=== PATIENT | female | born 1955 | race Caucasian/White ===

== ENCOUNTER 2024-03-22 03:04 | Inpatient (IN) | payer OTHER, SELFPAY ==
[2024-03-22] VITALS (20 sets, daily range): BP systolic 90–164; BP diastolic 44–92; PULSE 2–83; BMI 33.0
[2024-03-22 01:19] LABS: Glucose - Point of Care 257 mg/dl (70-99)
[2024-03-22] MEDS: SOLU-MEDROL PF 125 MG IV (01:22)
[2024-03-22] MEDS: LASIX 40 MG IV (01:28)
[2024-03-22] MEDS: DUONEB 3 ML INH (01:30)
[2024-03-22 01:32] LABS: % Basophils 0.8 % (0-2); % Immature Granulocytes 0.3 % (0-0.5); % Lymphocytes 44.7 % (20.5-51.1); % Monocytes 9.2 % (1.7-9.3); Absolute Basophils 0.1 10^3/uL (0-0.2); Absolute Eosinophils 0.5 10^3/uL (0-0.7); Absolute Lymphocytes 4.4 10^3/uL (1.2-3.4); Absolute Monocytes 0.9 10^3/uL (0.1-0.6); Hematocrit 39.2 % (37.0-47.0); Hemoglobin 13.1 g/dL (12.0-16.0); Mean Corp Hgb Conc. 33.4 g/dL (33.0-37.0); Mean Corpuscular Hgb 30.2 pg (27.0-31.0); Mean Corpuscular Volume 90.3 fL (81.0-99.0); Mean Platelet Volume 11.1 fL (7.4-10.4); Nucleated Red Blood Cells % 0 %; Platelet Count 274 10^3/uL (130-400); Red Blood Cell Count 4.34 10^6/uL (4.20-5.40); Red Cell Dist. Width 14.9 % (11.5-14.5); White Blood Cell Count 9.9 10^3/uL (4.8-10.8)
[2024-03-22 01:51] LABS: ALT (SGPT) 16 U/L (0-35); AST (SGOT) 30 U/L (14-36); Albumin 4.8 g/dl (3.5-5.0); Alkaline Phosphatase 134 U/L (38-126); Blood Urea Nitrogen 25 mg/dl (7-17); Calcium 10.2 mg/dl (8.4-10.2); Carbon Dioxide 22 mmol/L (22-30); Chloride 106 mmol/L (98-107); Glucose 290 mg/dl (70-99); Potassium 4.4 mmol/L (3.5-5.1); Sodium 141 mmol/L (135-145); Total Bilirubin 0.8 mg/dl (0.2-1.3); Total Protein 8.4 g/dl (6.3-8.2); eGFR 54.06
--- NOTE | 2024-03-22 01:53 | ED.GENMED ---
History of Present Illness
General
Chief Complaint: Breathing Problem
Source: patient, records, family and ambulance crew
Exam Limitations: none
Time Seen by Provider: 03/22/24 01:35
Nursing documentation reviewed up to this point in time: agreed with
Travel History
Have you had any contact with someone who has COVID-19?: Unable to Answer
Do you have any symptoms of coronavirus? Fever > 100 degrees, chills, cough, shortness of breath, sore throat, loss of taste or smell, muscle aches, or headache?: Unable to Answer
History of Present Illness
History of Present Illness:
69-year-old female with a past medical history of CHF, CAD, pacemaker/AICD, diabetes, hypertension, hyperlipidemia who presents to the emergency department via EMS in respiratory distress. Patient reports that she had onset of symptoms this
evening�she says that she was generally well throughout the day and then woke up tonight with severe dyspnea. She told her family that she could not breathe and they called EMS to bring her to the hospital. Per EMS on arrival patient was
tachypneic with wheezing and basilar rales, saturation was 62% on room air. She was placed on nonrebreather mask with improvement to 88%; she was given DuoNeb on the way to the hospital. On arrival here she continues to complain of severe dyspnea.
She denies any chest pain. She says she has been coughing since onset of symptoms. She has not noticed any edema in her legs. She says has been compliant with all her medications�family brought medications to the bedside she is on Lasix 80 mg
twice daily.
Past History
Past History
ED Past Medical History: NIDDM
ED Past Surgical History: Orthopedic
Social History
Tobacco: Smoker
Alcohol: None
Review of Systems
Review of Systems
Unable to obtain full review of systems at this time due to: due to acuity
All Other Systems: Not applicable
Phy Exam
Physical Exam
Physical Exam:
General: Awake, alert; in moderate to severe respiratory distress
Head: Normocephalic, atraumatic
Eyes: Conjunctiva normal, sclera anicteric
Throat: Airway intact
Neck: Trachea midline, slight JVD
Lungs: Patient has scattered wheezing and diminished air movement; she does have rales in the lung bases; she has severe tachypnea with respiratory rate in the 30s to 40s and hypoxia to 88% on a nonrebreather mask
Heart: Tachycardia with ostensibly regular rhythm, no murmurs, gallops, or rubs
Abd: Soft, non distended, nontender
Neuro: No gross deficits
Extremities: Trace edema in the lower extremities bilaterally, equal pulses in all extremities
Scores
Heart Failure Risk
Heart Failure Risk Score: Yes
History of Stroke or TIA: No
History of intubation for respiratory distress: No
Heart rate on ED arrival >/= 110: Yes
SaO2 <90% on arrival on room air: Yes
HR >/=110 during 3min walk test (or too ill to perform test): Yes
ECG has acute ischemic changes: No
Urea >/=12mmol/L (BUN 33.6mg/dL): No
Serum CO2>/=35mmol/L: No
Troponin I or T elevated to [place] Level (0.4mg/dL): No
NT-proBNP >/=5,000ng/L (5,000pg/ml): No
HF Risk Score: 3
Admission Status: HIGH RISK 15.9% Consider SNF treatment or admission to hospital
Heart Score for Chest Pain Patients
STEMI patient?: Not applicable
Withdrawal Assessment of Alcohol
Withdrawal Assessment Completed?: Not applicable
Course
Orders/Labs/Results
Orders:
Orders
03/22/24 01:15
Electrocardiogram (*1) Urgent
Reason for Study: Other
Other Reason for Exam: Respiratory Distress
Cardiac Monitoring- Treatment ONCE
EKG- Treatment ONCE
IV Insert/Care/Rem.- Treatment PRN
CR Chest Portable - 1 View Urgent
Comment:
Reason For Exam: respiratory distress
Reason Study Needs to be Portable: Patient Unstable
O2 Therapy [RESP] Urgent
Titrate/Wean O2 to maintain O2 sat greater than (%): 93
Special Instructions: TO MAINTAIN CONTINUOUS O2 SATS >/= 93%
Pulse Ox/cont/shift [RESP] Urgent
Quantity: 1
Special Instructions: continuous pulse ox
03/22/24 01:18
Ipratropium/Albuterol Sulfate [Duoneb] 3 ml .ROUTE .STK-MED ONE
MethylPREDNISolone PF [Solu-Medrol Pf] 125 mg .ROUTE .STK-MED ONE
03/22/24 01:21
MethylPREDNISolone PF [Solu-Medrol Pf] 125 mg IV NOW STA
03/22/24 01:24
Furosemide [Lasix] 40 mg .ROUTE .STK-MED ONE
03/22/24 01:25
Complete Blood Count/With Diff Urgent
Comprehensive Metabolic Panel Urgent
NT-proBNP Urgent
Troponin I Urgent
03/22/24 01:27
Furosemide [Lasix] 40 mg IV NOW STA
03/22/24 01:28
Nitroglycerin Sublingual [Nitrostat (Sublingual)] 0.4 mg SL NOW STA
03/22/24 01:30
Ipratropium/Albuterol Sulfate [Duoneb] 3 ml INH R NOW ONE
03/22/24 01:34
Nitroglycerin 100 mg/250 ml [Nitroglycerin Premix] 100 mg in 250 ml .ROUTE .STK-MED
03/22/24 01:44
Lactate Level [Lactic Acid] Urgent
Blood Culture Q30M
CHARITY Source: Blood/Venous
Specimen Description:
Blood Culture Q30M
CHARITY Source: Blood/Venous
Specimen Description:
03/22/24 01:51
Azithromycin 500 mg/250 ml [Zithromax Infusion] 500 mg in 250 ml IV NOW
CefTRIAXone [Rocephin] 1,000 mg IV NOW STA
Abnormal Lab Results
03/22/24 03/22/24
01:17 01:25
RDW 14.9 H %
(11.5-14.5)
MPV 11.1 H fL
(7.4-10.4)
Absolute Lymphs (auto) 4.4 H 10^3/uL
(1.2-3.4)
Absolute Monos (auto) 0.9 H 10^3/uL
(0.1-0.6)
Neutrophils % 40.0 L %
(42.2-75.2)
BUN 25 H mg/dl
(7-17)
Creatinine 1.1 H mg/dL
(0.6-1.0)
Glucose 290 H mg/dl
(70-99)
Alkaline Phosphatase 134 H U/L
(38-126)
Total Protein 8.4 H g/dl
(6.3-8.2)
POC Glucose 257 H mg/dl
(70-99)
03/22/24 01:25
03/22/24 01:25
Vital Signs
Initial and Last Documented VS:
Initial Vital Signs
Pulse Resp Pulse Ox
139 32 87
03/22/24 01:15 03/22/24 01:15 03/22/24 01:15
Last Documented Vital Signs
Temp Pulse Resp BP Pulse Ox
36.4 C 104 26 153/81 100
03/22/24 01:31 03/22/24 01:31 03/22/24 01:31 03/22/24 01:31 03/22/24 01:31
MDM/Problems Addressed
Differential Diagnosis Includes:
Acute CHF/flash pulmonary edema, pneumonia, COPD/asthma/bronchitis, pulmonary embolism
MDM/Problems Addressed:
69-year-old female presents in respiratory distress�had onset of dyspnea this evening associate with coughing. No chest pain. She had wheezing on the way to the hospital was given DuoNeb. She arrives with significant tachypnea, hypoxia despite
100% nonrebreather mask. Exam as above. She was initially treated with an additional DuoNeb and given IV methylprednisolone given scattered wheezing and diminished air movement. She was placed on BiPAP with improvement in hypoxia and tachypnea.
IV placed and labs sent off including a CBC and a CMP, lactate, blood cultures. EKG shows tachycardia, atrial sensed and ventricular paced rhythm. Called for stat portable chest x-ray at that point noted to have pulmonary edema as well as a right
lower lung infiltrate concerning for aspiration or infection. Blood pressure was noted to be elevated she was given a sublingual nitroglycerin with improvement. She was given 40 mg of IV Lasix for CHF exacerbation. Will plan to cover with
antibiotics for pneumonia given focal opacity in the right lower lung. Will plan to admit for continued management of acute respiratory failure with hypoxia secondary to CHF exacerbation and right lower lobe pneumonia.
Chronic conditions affecting care:
CHF, CAD, obesity
Acute Exacerbation and/or Progression of Chronic Illness:
Acute CHF exacerbation management as above.
*Radiology
Radiology exam reviewed: preliminary read by ED provider
*Pulse Oximetry
Patient hypoxic: yes
*EKG
Interpreted by ED Provider?: Yes
Heart Rate: 109
Rate: tachycardiac
Rhythm: other (Atrial sensed ventricular paced)
*Critical Care Note
Total Time (30-74mins, 75-104mins- exclusive of procedures): 37
comment:
Critical care statement: A total of 37 minutes of critical care time was provided for this patient. This includes management of unstable vital signs, evaluation of the patient at bedside, frequent reassessment, discussion with
consultants/hospitalist, and review of pertinent medical records. This time was separate from time utilized to perform any aforementioned documented procedures
Data Reviewed
Review of Other/Old Records Reveals: Labs and Records
Source: patient, records, family and ambulance crew
Patient Management
Discussion with other providers: Hospitalist (Discussed with hospitalist)
Escalation/DeEscalation of care consider admission/obs:
Admission indicated
ED Attending Note
-
Portions of this chart may have been created with voice recognition software.� Occasional wrong word or��sound alike� substitutions may have occurred due to the inherent limitations of voice recognition software.
Discharge Plan
Departure
Patient Disposition: Admit
Date of Disposition: 03/22/24
Time of Disposition: 01:52
Admit to doctor: Nae
Presentation/result/management discussed w/ accepting MD/DO: Hospitalist
Discharge Problem:
CHF exacerbation, Pneumonia, Acute hypoxemic respiratory failure
Prescriptions:
No Action
metformin 500 mg tablet
1,000 mg PO BID@0800,1700
Januvia 100 mg tablet
100 mg PO DAILY
clopidogrel 75 mg Tablet
75 mg PO DAILY Qty: 30 0RF
metoprolol succinate 25 mg Tablet Extended Release 24 Hr
25 mg PO HS Qty: 30 0RF
lisinopril 2.5 mg Tablet
2.5 mg PO DAILY Qty: 30 0RF
ezetimibe 10 mg Tablet
10 mg PO DAILY Qty: 30 0RF
omeprazole 20 mg Capsule,Delayed Release(Dr/Ec)
20 mg PO QPM
aspirin 81 mg tablet,chewable
81 mg PO QPM
spironolactone 25 mg Tablet
25 mg PO DAILY Qty: 30 3RF
furosemide 40 mg tablet
80 mg PO BID Qty: 60 0RF
Referrals:
UNKNOWN - PT DOES,NOT KNOW [Family Provider] -
Interventions
Interventions:
*Risk Screen - Suicide Last Done: 03/22/24 01:30
*General Assessment Last Done: 03/22/24 01:30
*Neglect/Abuse Screening Last Done: 03/22/24 01:30
ED- Cardiac Assessment Last Done: 03/22/24 01:20
ED- Pulmonary Assessment Last Done: 03/22/24 01:20
Discharge Date and Time
Print Language: SRI LANKAN
[2024-03-22 02:00] LABS: NT-proBNP 2410 pg/ml; Troponin I < 0.012 ng/ml
[2024-03-22 02:05] LABS: Lactic Acid 3.6 mmol/L (0.7-2.0)
[2024-03-22] MEDS: ROCEPHIN 1000 MG IV (02:11)
[2024-03-22] MEDS: ZITHROMAX INFUSION 250 IV (02:11)
--- NOTE | 2024-03-22 02:28 | HPS.HSE ---
Family Physician
-
Family Physician: NOT KNOW UNKNOWN - PT DOES
Chief Complaint
-
Acute onset SOB
History of Present Illness
This is a 69-year-old female with past medical history significant for diabetes, hypertension, hyperlipidemia, cardiomyopathy with EF of 35% moderate to severe MR, status post AICD and pacemaker who presented to the emergency department
with an acute episode of shortness of breath that started just a few hours prior to coming to the ED.
Patient was last admitted to the hospital here at a year ago for CHF exacerbation. Since then she appears to have been in usual state of health with excellent management of fluid status. 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
and at that time was felt to be doing very well. She was on Bumex 2 mg twice daily at that time. Bumex was reduced to 2 mg daily due to a bump in her creatinine. Despite this decrease in diuretic dosing the patient apparently continued to lose
weight and has lost about 5 pounds since the medication change. She has not had any new symptoms such as lower extremity swelling, chest pain exertional or otherwise, palpitations lightheadedness or dizziness. She was in usual state of health up
until after dinner prior to coming to the ED. All of a sudden the patient called out to family members saying that she could not breathe. She denied having any chest pain nausea diaphoresis at that moment. She denies any palpitations or
lightheadedness. She felt panicked and EMS was called. On EMS arrival patient's initial oxygen saturation was was in the 60s and she appeared [place]. He was immediately brought to the emergency department.
Family denies any known sick contacts. Patient has not had any recent cough cold fevers or chills. No known URI symptoms. She has not been on any recent antibiotics. She had no recent flights. She had no recent immobilization or
hospitalizations.
On arrival in the emergency department the patient was placed on BiPAP. She was afebrile blood pressure was 150/80 with a pulse of 104 respirate of 26 and she was satting 100% on 50% FiO2. Chest x-ray shows interstitial edema possible confluence
in the left lower lobe. There is increased vascular markings. ECG shows a sensed V paced rhythm at a rate of 109. Initial troponin was 0.012, BNP was over 2000. CBC was unremarkable. Chemistries were notable for a glucose of 290 and a lactic
acid of 3.6 but otherwise unremarkable.
She was diuresed with Lasix and pain giving IV antibiotics. The patient's respiratory distress status has improved since presentation to the ED.
Medical History
Past Medical History
Past Medical History: Reports CAD, CHF, HTN, Hypercholesterolemia and NIDDM
Additional Past Medical History:
Mitral Regurgitation
Past Surgical History: Reports None
Social History
Tobacco: Non-smoker
Alcohol: None
Drug: None
Personal: Single
Living: With Family
Employment: Retired
Family History
Family History: Not pertinent
Allergies / Home Medications
Allergies reflects when Allergies were last updated in [employer].
Home Medications with original date entered in [employer]
Allergy/Medication List:
Allergies
Allergy/AdvReac Type Severity Reaction Status Date / Time
Fish Containing Products Allergy Anaphylaxis Verified 01/12/23 15:30
meperidine [From Demerol] Allergy Anaphylaxis Verified 01/12/23 15:30
rosuvastatin [From Crestor] Allergy Nausea / Verified 01/12/23 21:27
Vomiting
Sulfa (Sulfonamide Allergy Anaphylaxis Verified 01/12/23 15:30
Antibiotics)
Home Medications
metformin 500 mg tablet 500 mg PO BID@0800,1700 Diabetes 10/31/22
sitagliptin phosphate 100 mg tablet (Januvia) 100 mg PO DAILY Diabetes 10/31/22
clopidogrel 75 mg tablet 75 mg PO DAILY Blood clot prevention/tx #30 tabs 11/05/22
ezetimibe 10 mg tablet 10 mg PO DAILY High cholesterol #30 tabs 11/05/22
metoprolol succinate 25 mg tablet,extended release 24 hr 25 mg PO HS Heart Failure #30 tabs 11/05/22
aspirin 81 mg chewable tablet 81 mg PO QPM Blood clot prevention/tx 01/12/23
omeprazole 20 mg capsule,delayed release 20 mg PO QPM Gastrointestinal issue 01/12/23
bumetanide 2 mg tablet 2 mg PO DAILY 03/22/24
valsartan 40 mg tablet 20 mg PO DAILY 03/22/24
Review of Systems
-
History Source: Patient and Family
Constitutional: Reports No Symptoms
EENT: Reports No Symptoms
Respiratory: Reports Trouble Breathing
Cardiac: Reports No Symptoms
Abdomen/GI: Reports No Symptoms
: Reports No Symptoms
Musculoskeletal: Reports No Symptoms
Skin: Reports No Symptoms
Neurological: Reports No Symptoms
Endocrine: Reports No Symptoms
Hematologic/Lymphatic: Reports No Symptoms
Psych: Reports No Symptoms
Physical Exam
Vital Signs
Vital Signs
Temp Pulse Resp BP Pulse Ox
97.5 F 110 19 139/82 100
03/22/24 01:31 03/22/24 02:15 03/22/24 02:15 03/22/24 02:10 03/22/24 02:10
Physical Exam
General: Respiratory Distress
HEENT: NormoCephalic, Anicteric, Moist mucous membranes, Atraumatic, PERRLA, [place] Conjunctivae and Oxygen
Respiratory: Crackles and Decreased Breath Sounds
Cardiac: S1/S2, Tachycardia and Peripheral Edema
Breast: Deferred by me
GI: Soft, Non Tender, Non Distended and Normal Bowel Sounds
Rectal: Deferred by Provider
Genito-urinary: Deferred by me
Musculoskeletal: No Clubbing, No Cyanosis, Edema, Left Lower Extremity (trace) and Edema, Right Lower Extremity (trace)
Skin: Warm
Neuro: AO x 3
Hematologic/Lymphatic: No Lymphadenopathy
Psych: Calm
Laboratory Results
-
04/27/24 01:25
03/22/24 01:25
Laboratory Results
Lactic Acid 3.6 mmol/L (0.7-2.0) H 03/22/24 01:44
Total Bilirubin 0.8 mg/dl (0.2-1.3) 03/22/24 01:25
AST 30 U/L (14-36) 03/22/24 01:25
ALT 16 U/L (0-35) 03/22/24 01:25
Alkaline Phosphatase 134 U/L (38-126) H 03/22/24 01:25
Troponin I < 0.012 ng/ml 03/22/24 01:25
Data Reviewed
-
Diagnostic Radiology: Image Personally Visualized and interpreted
Medical Tests (Nuc Med, Echo, EKG etc): Image Personally Visualized and interpreted
Lab Data: Labs Reviewed by me
Old Records: Reviewed
Impression/Plan
-
IMPRESSION:
PLAN:
1. Acute Hypoxic Respiratory failure - Sudden onset hypoxia decompensating within minutes of onset. Xray c/w pulmonary edema. ECG is non-ischemic. Trop is negative. Unlikely acute CHF 2/2 ischemia. Cannot rule out flash pulm edema from
worsening valvular disease. History suggests patients volume status and BP has been well controlled prior to this event. Unlikely infectious process. No evidence of palpitations but cannot rule out abnormal rhythm (however no shocks from AICD).
Despite careful and close management of her CHF she appears to have developed flash edema. She has improved significantly on BIPAP and after diuretics.
- admit to IMU
- titrate BIPAP FIO2 to 30% and wean to nasal canula when WOB is further improved or respiratory rate less than 18
- cycle enzymes
- echo
- lasix 80mg iv q 12 for now (was on bumex 2mg daily)
- check procalcitonin, hold further abx (was given CAP coverage on admission)
- cardiology consultation
2. CHF - ICM EF 35%, mod-sev MR, RV hypokinesis. Suspect CHF exacerbation based on Xray findings and lung auscultation but mechanism is not evident. No ischemia obvious
- diuretics as above
- echo for wall motion and valve assessment
- continue valsartan 40 daily, metoprolol 25 daily, dapagliflozin
- continue DAPT
- cards consult
3. DM II - on metformin at home
- continue metformin 500
- low dose aspart sliding scale
4. COPD- h/o COPD and prior smoking. Minimal wheezing on exam.
- prn nebs for now
DVT PPX w/ lovenox sq
Full code
[2024-03-22 02:53] LABS: COVID-19 Antigen Negative (Negative)
[2024-03-22 06:49] LABS: Hematocrit 39.2 % (37.0-47.0); Mean Corp Hgb Conc. 33.2 g/dL (33.0-37.0); Mean Corpuscular Hgb 30.4 pg (27.0-31.0); Mean Corpuscular Volume 91.8 fL (81.0-99.0); Mean Platelet Volume 10.5 fL (7.4-10.4); Platelet Count 256 10^3/uL (130-400); Red Blood Cell Count 4.27 10^6/uL (4.20-5.40); Red Cell Dist. Width 14.9 % (11.5-14.5); White Blood Cell Count 10.1 10^3/uL (4.8-10.8)
[2024-03-22 07:02] LABS: Blood Urea Nitrogen 29 mg/dl (7-17); Calcium 9.7 mg/dl (8.4-10.2); Carbon Dioxide 27 mmol/L (22-30); Chloride 105 mmol/L (98-107); Estimated Creatinine Clearance 48 ml/min; Glucose 237 mg/dl (70-99); Magnesium 1.9 mg/dl (1.6-2.3); Potassium 4.6 mmol/L (3.5-5.1); Sodium 140 mmol/L (135-145)
[2024-03-22 07:19] LABS: Troponin I 0.263 ng/ml
[2024-03-22 07:20] LABS: Procalcitonin 0.13 ng/ml (0.0-0.25)
--- NOTE | 2024-03-22 07:30 | PTCARENOTE ---
Patient received from the ED via stretcher and was pulled to bed by staff. She was oriented to room and surroundings. Daughter at the bedside. Tele A paced. HRR +1 LE edema, BiPAP maintained by Resp Therapist. Pt requesting BiPAP to be removed
this morning. This web content writer explained reasoning and need to maintain BiPAP. Patient and daughter requesting Respiratory Therapist to discuss. TT to RT who came to room but daughter had left by then. Patient agreeable to keep BiPAP in place.
Patient on bedpan for BM this morning with Sat decreased to 85%. O2 increased to 5lpm with recovery to 97% Sat. Purewick in place draining clear yellow urine. Labs drawn and EKG done.
--- NOTE | 2024-03-22 07:41 | CON.CAR ---
Addendum entered and electronically signed by Khoa Chávez MD 03/22/24 12:40:
Patient seen and evaluated personally. I agree with the note, physical examination, plan of care as documented below.
69-year-old woman with HFrEF (LVEF 35%), coronary disease, COPD, diabetes, hypertension, presented with respiratory failure and acute on chronic heart failure. Patient's proBNP was 2410 with elevated lactic acid.
Appears to be fluid overloaded on examination with lower extremity edema and JVD. Continue Lasix 80 mg IV twice a day. Obtain echo likely on Sunday.
Original Note:
Consultation
Consultation Request
Date/Time Consultation Requested: 03/22/2024 04:00
Date/Time Consultation Performed: 03/22/2024 07:40
Requesting Provider: Dr. Soni
Performing Provider: MARIANO Covington for Dr. Chávez
Reason for Consultation: Acute on chronic HFpEF
Medical History
-
Chief Complaint: Shortness of breath
History of Present Illness:
Indy Henderson is a 69-year-old female (known to Dr. Haley's, her primary orthotic/prosthetic practitioner), with HFrEF, CAD (PCI 10/2022), dyslipidemia, COPD, and type 2 diabetes mellitus to the emergency room with sudden onset of shortness of breath. She was
sitting at home when she had sudden onset of shortness of breath. Her family called EMS and SpO2 was found to be in the 60s and she appeared [place]. She presented tachycardic and normotensive. She was started on BiPAP and given intravenous
diuretic. Most notable labs were proBNP of 2410, lactic acid 3.6, and glucose of 290. Initial troponin <0.012, trending troponin now at 0.263. her primary orthotic/prosthetic practitioner decreased her outpatient bumetanide in the setting of worsening renal function.
It was changed from 2 mg twice daily to 2 mg daily. Despite this change in diuretic dosing the patient apparently continued to lose weight and did not have any peripheral edema. She reports medication adherence along with compliance of daily
weights. She states her home scale has been stable. The patient was hospitalized in December of last year at this facility. At the time of her discharge she was approximately 75 kg. She arrived 91.5 kg and is currently 90 kg this morning.
Her daughter is at the bedside. Plan of care reviewed with the patient and her daughter.
Past Medical History
Past Medical History: Asthma, CAD, CHF, COPD, HTN, Hypercholesterolemia and NIDDM
Social History
Tobacco: Former Smoker
Alcohol: None
Drug: None
Living: With Family
Employment: Retired
Family History
Family History: Reviewed & Not Pertinent
Allergies / Home Medications
Allergy/AdvReac Type Severity Reaction Status Date / Time
Fish Containing Products Allergy Anaphylaxis Verified 01/12/23 15:30
meperidine [From Demerol] Allergy Anaphylaxis Verified 01/12/23 15:30
rosuvastatin [From Crestor] Allergy Nausea / Verified 01/12/23 21:27
Vomiting
Sulfa (Sulfonamide Allergy Anaphylaxis Verified 01/12/23 15:30
Antibiotics)
�Medication �Instructions �Recorded �Confirmed �Type
metformin 500 mg tablet 500 mg PO BID@0800,1700 Diabetes 10/31/22 03/22/24 History
sitagliptin phosphate 100 mg 100 mg PO DAILY Diabetes 10/31/22 03/22/24 History
tablet (Januvia)
clopidogrel 75 mg tablet 75 mg PO DAILY Blood clot 11/05/22 03/22/24 Rx
prevention/tx #30 tabs
ezetimibe 10 mg tablet 10 mg PO DAILY High cholesterol 11/05/22 03/22/24 Rx
#30 tabs
metoprolol succinate 25 mg 25 mg PO HS Heart Failure #30 tabs 11/05/22 03/22/24 Rx
tablet,extended release 24 hr
aspirin 81 mg chewable tablet 81 mg PO QPM Blood clot 01/12/23 03/22/24 History
prevention/tx
omeprazole 20 mg capsule,delayed 20 mg PO QPM Gastrointestinal issue 01/12/23 03/22/24 History
release
bumetanide 2 mg tablet 2 mg PO DAILY 03/22/24 03/22/24 History
dapagliflozin propanediol 10 mg 10 mg PO DAILY 03/22/24 03/22/24 History
tablet (Farxiga)
valsartan 40 mg tablet 20 mg PO DAILY 03/22/24 03/22/24 History
Review of Systems
-
History Source: Patient
All other systems: Negative unless noted
Respiratory: Trouble Breathing
Cardiac: No Symptoms
Abdomen/GI: No Symptoms
Physical Exam
Vital Signs
Temp Pulse Resp BP Pulse Ox
97.5 F 99 26 126/59 91
03/22/24 04:54 03/22/24 03:30 03/22/24 03:30 03/22/24 03:00 03/22/24 04:00
Lab Results
03/22/24 06:32
03/22/24 06:32
Troponin I 0.263 ng/ml H* D 03/22/24 06:32
Lyy-N-Vafxzxytfht Pept 2410 pg/ml 03/22/24 01:25
Physical Exam
General: Well Developed, Well Nourished and Comfortable
HEENT: Normocephalic, Anicteric and Moist Mucous Membranes
Respiratory: Crackles, Non Labored Respirations and Accessory Resp Muscle Use
Cardiac: S1/S2, Regular Rhythm and Peripheral Edema (+1-2 pitting LE edema)
Breast: Deferred by me
GI: Soft, Non Tender, Non Distended and Normal Bowel Sounds
Rectal: Deferred by Provider
Genito-urinary: No Costovertebral Tender
Musculoskeletal: No Clubbing and No Cyanosis
Skin: Warm and Dry
Neuro: AO x 3
Hematologic/Lymphatic: No Lymphadenopathy
Psych: Calm
Impression / Plan
-
Indy Henderson is a 69-year-old female (known to Dr. Ambriz, her primary orthotic/prosthetic practitioner), with HFrEF, CAD (PCI 10/2022), dyslipidemia, and type 2 diabetes mellitus who presented with acute on chronic heart failure presented with severe exacerbation.
Acute hypoxic respiratory failure
-Story consistent with flash pulmonary edema, heart failure plan as below
-Lactate elevated, trend
HFrEF/ICM (EF 35%), acute on chronic
-She appears volume overloaded on exam with pitting lower extremity edema and hypoxemia
-Change furosemide to 80mg IV BID
-Goal weight TBD, 12/2022 ~75kg
-Trend daily weight, I/Os, and BMP with diuresis
-Update TTE
-GDMT is limited by BP:
-MRA: Spironolactone stopped due to SARAH
-Beta luna: metoprolol succinate
-MIGUELINA/ARB: Valsartan
-SGLT2: Farxiga
-ICD: Implanted ([employer])
-HF education
Abnormal troponin, non-ischemic myocardial injury in the setting of acute HF
-Chest pain-free
-Trend to peak, currently 0.236
CAD: s/p stenting 11/02/22
-Stable without chest pain
-Occluded non-dominant Lcx
-Occluded RCA: s/p SRAVANTHI to mid RCA and R AV groove
-Continue ASA/Plavix for one year with ASA indefinitely
Valvular HD: mod/severe MR, and mod/severe TR, outpatient f/u with primary orthotic/prosthetic practitioner
Lipid management, reports statin intolerance, she is adamantly opposed to any further trial of statin, continue Zetia 10mg daily
PSVT, continue Toprol XL
NIDDM, Hgba1c 8.7%
Prior tobacco abuse with COPD, continued cessation recommended
Data Reviewed
-
EKG: Report Reviewed by me (Atrial sensed ventricular paced rhythm, rate 109)
[2024-03-22 08:13] LABS: Glucose - Point of Care 220 mg/dl (70-99)
[2024-03-22] MEDS: DIOVAN 40 MG PO (09:10)
[2024-03-22] MEDS: PLAVIX 75 MG PO (09:11)
[2024-03-22] MEDS: FARXIGA 10 MG PO (09:11)
[2024-03-22] MEDS: JANUVIA 100 MG PO (09:11)
[2024-03-22] MEDS: GLUCOPHAGE 500 MG PO ×2 (09:11→17:16)
--- NOTE | 2024-03-22 09:11 | W.PN.UPDATE ---
Addendum entered and electronically signed by Luca Ortiz MD 03/23/24 09:21:
Troponin elevation-suspect not on ischemic myocardial injury
Original Note:
Update Note
Progress Note Update
Pt seen by Dr. Soni for Acute SOB and hypoxia.
Patient feels improved since admission. Improved breathing. No chest pain
No acute respiratory distress evident.
Bilateral basal crackles heard.
Appreciate cardiology input. Continue with diuresis.
Wean oxygen and BiPAP. Start on a diet.
[2024-03-22] MEDS: LASIX 80 MG IV ×2 (09:12→17:15)
[2024-03-22] MEDS: ZETIA 10 MG PO (09:12)
[2024-03-22] MEDS: NOVOLOG FLEXPEN-LOW RESISTANCE 2 UNITS SC ×3 (09:33→17:16)
[2024-03-22] MEDS: FLUSH (NSS) 2 FLUSH IV (09:35)
[2024-03-22 13:18] LABS: Glucose - Point of Care 241 mg/dl (70-99)
[2024-03-22 13:30] LABS: Lactic Acid 2.6 mmol/L (0.7-2.0)
[2024-03-22 13:42] LABS: Troponin I 0.499 ng/ml
[2024-03-22 17:18] LABS: Glucose - Point of Care 210 mg/dl (70-99)
[2024-03-22] MEDS: LOVENOX 40 MG SC (17:30)
[2024-03-22] MEDS: PROTONIX 40 MG PO (17:31)
[2024-03-22] MEDS: LOW STRENGTH ASPIRIN 81 MG PO (17:33)
--- NOTE | 2024-03-22 19:40 | PTCARENOTE ---
Patient weaned from BIPAP to 2 L nc and tolerating well with pulse ox >95%, alert and oriented and appropriate conversations. Able to make her needs known.
[2024-03-22 20:25] LABS: Lactic Acid 2.4 mmol/L (0.7-2.0)
[2024-03-22 20:44] LABS: Troponin I 0.418 ng/ml
[2024-03-22] MEDS: TOPROL XL 25 MG PO (22:05)
[2024-03-22 22:19] LABS: Glucose - Point of Care 195 mg/dl (70-99)
[2024-03-23] VITALS (17 sets, daily range): BP systolic 81–140; BP diastolic 36–79; BMI 31.9
[2024-03-23 05:53] LABS: Blood Urea Nitrogen 36 mg/dl (7-17); Calcium 9.6 mg/dl (8.4-10.2); Carbon Dioxide 29 mmol/L (22-30); Chloride 102 mmol/L (98-107); Estimated Creatinine Clearance 41 ml/min; Glucose 146 mg/dl (70-99); Potassium 4.3 mmol/L (3.5-5.1); Sodium 140 mmol/L (135-145); eGFR 40.47
[2024-03-23] MEDS: NOVOLOG FLEXPEN-LOW RESISTANCE SC ×2 (09:01→16:25)
[2024-03-23] MEDS: FARXIGA 10 MG PO (09:02)
[2024-03-23] MEDS: ZETIA 10 MG PO (09:02)
[2024-03-23] MEDS: DIOVAN 40 MG PO (09:02)
[2024-03-23] MEDS: PLAVIX 75 MG PO (09:03)
[2024-03-23] MEDS: LASIX IV (09:03)
[2024-03-23] MEDS: GLUCOPHAGE 500 MG PO ×2 (09:03→16:58)
[2024-03-23] MEDS: JANUVIA 100 MG PO (09:03)
[2024-03-23 09:08] LABS: Glucose - Point of Care 147 mg/dl (70-99)
--- NOTE | 2024-03-23 09:15 | W.PN.HOSP.TC ---
Today's Communication/Plan
-
Echo cardiogram tomorrow. Continue diuresis as blood pressure permits. Hold losartan with increased creatinine and to facilitate diuresis.
Assessment / Plan
Assessment / Plan
Acute Hypoxic Respiratory failure - Sudden onset hypoxia decompensating within minutes of onset. Resolved. Off of BiPAP and currently on room air. Clinical suspicion is acute systolic CHF decompensation.
Acute on chronic CHF with reduced EF- ICM EF 35%, mod-sev MR, RV hypokinesis.
Patient presents with acute shortness of breath. She did JVD. She had a chest x-ray which is not suggestive of significant pulmonary edema or congestion. Her BNP was up so. Her weight is up compared to baseline. She also has moderate to severe
MR which can precipitate rapid heart failure then she has low EF. With the diuretic regimen she lost 10 pounds and now currently asymptomatic and off of oxygen. Repeat echocardiogram.
Continue with diuretics as blood pressure permits.
Increasing creatinine noted with diuresis. Hold MIGUELINA inhibitors to facilitate diuresis.
- continue DAPT
- cards following.
Lactic acidosis-suspect secondary to hypoxia. Resolved. Clinically no evidence of sepsis or obvious foci of infection.
DM II - on metformin at home
-Hold metformin 500
- low dose aspart sliding scale
COPD- h/o COPD and prior smoking. No clinical evidence of exacerbation. Currently not bronchospastic.
- prn nebs for now
DVT PPX w/ lovenox sq
Full code
Anticipated Discharge: > 48 hours
Subjective/Interval History
-
Date of Service: March 23, 2024
Feeling much improved from breathing standpoint. No chest pain.
Off of BiPAP. Off of oxygen altogether.
Objective Data
-
Labs:
Laboratory Results
03/23/24
04:29
Sodium 140
Potassium 4.3
Chloride 102
Carbon Dioxide 29
BUN 36 H
Creatinine 1.4 H
Glucose 146 H
Calcium 9.6
Vital Signs:
Vital Signs
Temp Pulse Resp BP Pulse Ox
98.1 F 63 22 103/51 95
03/23/24 08:00 03/23/24 09:03 03/23/24 09:03 03/23/24 09:03 03/23/24 09:03
I&O
03/22/24 03/23/24 03/24/24
06:59 06:59 06:59
Intake Total 280 / 280
Output Total 400 / 400 2350 / 2349
Balance -400 / -400 -2069 / -2069
Review of Systems
-
Constitutional: Denies Fever
EENT: Denies Sore Throat
Respiratory: Denies Cough
Abdomen/GI: Denies Abdominal Pain, Nausea or Vomiting
Neuro: Denies Dizzy
Physical Exam
-
General: No Apparent Distress
HEENT: Moist Mucous Membranes
Respiratory: Crackles (bl basilar areas) and Non Labored Respirations; Negative Wheezes or Accessory Resp Muscle Use
Cardiac: Regular Rhythm and S1/S2
GI: Soft
Neuro: AO x 3
Psych: Calm
Data Reviewed
-
Labs: Labs Reviewed by me
--- NOTE | 2024-03-23 09:30 | W.PN.CD ---
Today's Communication / Plan
-
- Continue diuresis.
- Holding ARB and Januvia
Impression / Plan
-
Indy Henderson is a 69-year-old female (known to Dr. Falks, her primary quality assurance lab technician), with HFrEF, CAD (PCI 10/2022), dyslipidemia, and type 2 diabetes mellitus who presented with acute on chronic heart failure presented with severe exacerbation.
Acute hypoxic respiratory failure
-Story consistent with flash pulmonary edema, heart failure plan as below
-Lactate elevated, trend
HFrEF/ICM (EF 35%), acute on chronic
-volume overloaded on exam with pitting lower extremity edema and hypoxemia
-On furosemide to 80mg IV BID
-Goal weight TBD, 12/2022 ~75kg
-Trend daily weight, I/Os, and BMP with diuresis
-Update TTE
-GDMT is limited by BP:
-MRA: Spironolactone stopped due to SARAH
-Beta luna: metoprolol succinate
-MIGUELINA/ARB: Valsartan - Holding with rising Cr
-SGLT2: Farxiga - Holding with rising Cr
-ICD: Implanted ([employer])
-HF education
Abnormal troponin, non-ischemic myocardial injury in the setting of acute HF
-Chest pain-free
-peaked at 0.49
CAD: s/p stenting 11/02/22
-Stable without chest pain
-Occluded non-dominant Lcx
-Occluded RCA: s/p SRAVANTHI to mid RCA and R AV groove
-Continue ASA/Plavix for one year with ASA indefinitely
Valvular HD: mod/severe MR, and mod/severe TR, outpatient f/u with primary quality assurance lab technician
Lipid management, reports statin intolerance, she is adamantly opposed to any further trial of statin, continue Zetia 10mg daily
PSVT, continue Toprol XL
NIDDM, Hgba1c 8.7%
Prior tobacco abuse with COPD, continued cessation recommended
Physical Exam
Vital Signs/Labs
Vital Signs
Temp Pulse Resp BP Pulse Ox
98.1 F 63 22 103/51 95
03/23/24 08:00 03/23/24 09:03 03/23/24 09:03 03/23/24 09:03 03/23/24 09:03
03/22/24 03/23/24 03/24/24
06:59 06:59 06:59
Actual Weight 89.9 kg 86.9 kg
03/22/24 06:32
03/23/24 04:29
Magnesium 1.9 mg/dl (1.6-2.3) 03/22/24 06:32
03/22/24
01:25
Xuo-K-Ftojbnkpmuv Pept 2410
LAB Results
03/22/24 03/22/24 03/22/24
01:25 06:32 12:55
Troponin I < 0.012 0.263 H* D 0.499 H* D
03/22/24
20:04
Troponin I 0.418 H*
Physical Exam
Constitutional: No acute distress and Comfortable
EENT: Anicteric and Moist mucous membranes
Cardiovascular: Rhythm & rate is regular, Pedal edema present (much improved) and JVD present
Respiratory: Respiratory effort normal and Wheeze Absent
GI: Soft and Non tender
Neuro/Psych: Alert, Oriented and AO x 3
Data Reviewed
-
Date of Service: March 23, 2024
Medical Decision Making: Reviewed Test Results
EKG: Tracing Personally Visualized and interpreted
Labs: Labs Reviewed by me
Old Records: Reviewed
Critical Care Time (in minutes): 32
[2024-03-23 12:41] LABS: Glucose - Point of Care 164 mg/dl (70-99)
[2024-03-23] MEDS: NOVOLOG FLEXPEN-LOW RESISTANCE 1 UNITS SC (13:02)
--- NOTE | 2024-03-23 14:05 | PTCARENOTE ---
Assumed care of patient at beginning of this shift from previous RN. Lactic acid 2.4 last night at 20:00, peaked at 3.6. Reviewed with Dr Ortiz; no need for repeat. Last troponin 0.418, peaked at 0.499; no repeat ordered. Remains AV paced on
monitor; for echo tomorrow. Son at bedside requesting to speak with physician. Dr Ortiz made aware and provided son's name/number via tiger text.
[2024-03-23 16:35] LABS: Glucose - Point of Care 103 mg/dl (70-99)
--- NOTE | 2024-03-23 16:37 | PTCARENOTE ---
Dr Ortiz made aware that note from Dr Chávez says to hold januvia, however patient has been ordered daily since yesterday. Dr Ortiz stated in TT that farxiga is to be held; he did place med on hold.
[2024-03-23] MEDS: LASIX 80 MG IV (16:56)
[2024-03-23] MEDS: LOW STRENGTH ASPIRIN 81 MG PO (17:01)
[2024-03-23] MEDS: PROTONIX 40 MG PO (17:01)
[2024-03-23] MEDS: LOVENOX 40 MG SC (17:01)
--- NOTE | 2024-03-23 18:11 | PTCARENOTE ---
Addendum entered by Cassidy Hunter RN 03/23/24 18:20:
Lasix placed on hold by Dr Ortiz.
Original Note:
Patient's BP dropped after her 16:00 dose of IV lasix. Prior to lasix, BP was 131/64 with the two before those 124/70 and 140/79. After Lasix, she was 104/47 left arm and 103/49 right arm. When laying on her left side BP was 81/55 and 87/[address] Ortiz made aware via tiger text.
[2024-03-23] MEDS: TOPROL XL 25 MG PO (21:15)
[2024-03-23 22:12] LABS: Glucose - Point of Care 127 mg/dl (70-99)
[2024-03-24] VITALS (16 sets, daily range): BP systolic 92–147; BP diastolic 34–103; PULSE 68; O2SAT 97; BMI 31.8
[2024-03-24 05:27] LABS: Blood Urea Nitrogen 37 mg/dl (7-17); Carbon Dioxide 32 mmol/L (22-30); Chloride 100 mmol/L (98-107); Estimated Creatinine Clearance 41 ml/min; Glucose 127 mg/dl (70-99); Sodium 140 mmol/L (135-145); eGFR 40.47
[2024-03-24 08:24] LABS: Glucose - Point of Care 135 mg/dl (70-99)
[2024-03-24] MEDS: NOVOLOG FLEXPEN-LOW RESISTANCE SC ×2 (08:40→17:26)
[2024-03-24] MEDS: PLAVIX 75 MG PO (08:46)
[2024-03-24] MEDS: GLUCOPHAGE 500 MG PO ×2 (08:46→17:36)
[2024-03-24] MEDS: JANUVIA 100 MG PO (08:47)
[2024-03-24] MEDS: ZETIA 10 MG PO (08:47)
--- NOTE | 2024-03-24 09:16 | W.PN.HOSP.TC ---
Today's Communication/Plan
-
ECHO today
Diuresis per cards
Reintroduce ACEI and Farxiga when more stable from BP and Cr standpoint.
Assessment / Plan
Assessment / Plan
Acute Hypoxic Respiratory failure - Sudden onset hypoxia decompensating within minutes of onset. Resolved. Off of BiPAP and currently on room air. Clinical suspicion is acute systolic CHF decompensation.
Acute on chronic CHF with reduced EF- ICM EF 35%, mod-sev MR, RV hypokinesis.
Patient presents with acute shortness of breath. She did JVD. She had a chest x-ray which is not suggestive of significant pulmonary edema or congestion. Her BNP was up so. Her weight is up compared to baseline. She also has moderate to severe
MR which can precipitate rapid heart failure as she has low EF as well. With the diuretic regimen she lost 10 pounds and now currently asymptomatic and off of oxygen. Repeat echocardiogram.
Continue with diuretics as blood pressure permits.
Increasing creatinine noted with diuresis. Hold MIGUELINA inhibitors to facilitate diuresis.Lasix is on hold this morning due to elevation of Cr. Resume if ok from Cardiology.
Farxiga on hold due to raising creatinine.
- continue DAPT
- cards following.
Raise in creatinine - Doubt SARAH, suspect sec to diuresis.Follow.
Lactic acidosis-suspect secondary to hypoxia. Resolved. Clinically no evidence of sepsis or obvious foci of infection.
DM II - on metformin at home
-Hold metformin 500
- low dose aspart sliding scale
COPD- h/o COPD and prior smoking. No clinical evidence of exacerbation. Currently not bronchospastic.
- prn nebs for now
DVT PPX w/ lovenox sq
Full code
Anticipated Discharge: 24 - 48 hours
Subjective/Interval History
-
Date of Service: March 24, 2024
Remains asymptomatic. Denies any shortness of breath or chest pain.
Objective Data
-
Labs:
Laboratory Results
03/24/24
04:40
Sodium 140
Potassium 4.0
Chloride 100
Carbon Dioxide 32 H
BUN 37 H
Creatinine 1.4 H
Glucose 127 H
Calcium 10.0
Vital Signs:
Vital Signs
Temp Pulse Resp BP Pulse Ox
97.8 F 60 20 112/58 94
03/24/24 07:08 03/24/24 08:00 03/24/24 08:00 03/24/24 08:00 03/24/24 09:12
I&O
03/23/24 03/24/24 03/25/24
06:59 06:59 06:59
Intake Total 280 / 280 480 / 480
Output Total 2350 / 2350 1250 / 1250 900 / 900
Balance -2070 / -2070 -770 / -770 -900 / -900
Review of Systems
-
Constitutional: Denies Fever
EENT: Denies Sore Throat
Respiratory: Denies Cough
Abdomen/GI: Denies Abdominal Pain, Nausea or Vomiting
Neuro: Denies Dizzy
Physical Exam
-
General: No Apparent Distress
HEENT: Moist Mucous Membranes
Respiratory: Crackles (few basal crackles) and Non Labored Respirations; Negative Wheezes or Accessory Resp Muscle Use
Cardiac: Regular Rhythm and S1/S2
GI: Soft, Nontender, Nondistended and Normal Bowel Sounds
Musculoskeletal: No Edema
Neuro: AO x 3
Psych: Calm
Data Reviewed
-
Labs: Labs Reviewed by me
[2024-03-24 12:52] LABS: Glucose - Point of Care 166 mg/dl (70-99)
[2024-03-24] MEDS: NOVOLOG FLEXPEN-LOW RESISTANCE 1 UNITS SC (13:08)
--- NOTE | 2024-03-24 15:23 | CM ---
Patient with Dx Acute Hypoxic Respiratory failure, CHF. Room air 09:12am. Receiving IV Lasix.
Met with patient who resides alone in a one story house with 3 ROSA.
The patient has been independent in ADLs and ambulation.
The patient has no DME
Prior [facility].
No prior SNF.
PCP - Nishi Chaudhari
Pharmacy - [address], [place]
Offered VN for HF Education and patient declined, saying she already did that and feels she knows how to manage her HF at home.
No CM d/c needs identified.
Plan home.
--- NOTE | 2024-03-24 15:59 | PTCARENOTE ---
Pt presents as assessed. Aox3. A paced on tele monitor. Desatting to high 80's on RA, placed on 2L NC and sats recovered to mid to high 90's. Tolerating diet. OOB to chair with PT. Able to make needs known, call hernández within reach.
[2024-03-24 17:02] LABS: Glucose - Point of Care 140 mg/dl (70-99)
[2024-03-24] MEDS: PROTONIX 40 MG PO (17:33)
[2024-03-24] MEDS: LOVENOX 40 MG SC (17:33)
[2024-03-24] MEDS: LOW STRENGTH ASPIRIN 81 MG PO (17:33)
[2024-03-24] MEDS: TOPROL XL 25 MG PO (21:37)
[2024-03-24 22:18] LABS: Glucose - Point of Care 146 mg/dl (70-99)
[2024-03-25] VITALS (11 sets, daily range): BP systolic 91–121; BP diastolic 52–100; PULSE 66–68; O2SAT 95; BMI 31.4
--- NOTE | 2024-03-25 01:29 | PTCARENOTE ---
Pt woke c/o visual hallucinations, disoriented to place and time. Pt was easily reoriented, but continues to c/o seeing people that are not there. Pt requested bipap be removed, This RN transitioned pt from bipap to midflow 12L. COSMETICS DEMONSTRATOR notified of pt
condition.
--- NOTE | 2024-03-25 05:16 | PTCARENOTE ---
Pt AAOx3, pw in place for incontinence. Pt denies complaints throughout the night. SaO2 noted to decrease to 88% on RA, improved to 97% on 1L. Call hernández within reach.
[2024-03-25 06:31] LABS: Blood Urea Nitrogen 43 mg/dl (7-17); Calcium 9.8 mg/dl (8.4-10.2); Carbon Dioxide 27 mmol/L (22-30); Chloride 102 mmol/L (98-107); Estimated Creatinine Clearance 51 ml/min; Glucose 133 mg/dl (70-99); Potassium 4.1 mmol/L (3.5-5.1); Sodium 136 mmol/L (135-145); eGFR 54.06
[2024-03-25 08:07] LABS: Glucose - Point of Care 119 mg/dl (70-99)
[2024-03-25] MEDS: NOVOLOG FLEXPEN-LOW RESISTANCE SC (08:09)
[2024-03-25] MEDS: JANUVIA 100 MG PO (08:52)
[2024-03-25] MEDS: PLAVIX 75 MG PO (08:52)
[2024-03-25] MEDS: ZETIA 10 MG PO (08:52)
[2024-03-25] MEDS: GLUCOPHAGE 500 MG PO (08:52)
--- NOTE | 2024-03-25 09:31 | W.PN.HOSP.TC ---
Today's Communication/Plan
-
Consider reintroducing lasix at lower dose
DC when ok from cardiology standpoint
Assessment / Plan
Assessment / Plan
Acute Hypoxic Respiratory failure - Sudden onset hypoxia decompensating within minutes of onset. Resolved. Off of BiPAP and currently on room air. Clinical suspicion is acute systolic CHF decompensation.
Acute on chronic CHF with reduced EF- ICM EF 35%, mod-sev MR, RV hypokinesis.
Patient presents with acute shortness of breath. She did JVD. She had a chest x-ray which is not suggestive of significant pulmonary edema or congestion. Her BNP was up so. Her weight is up compared to baseline. She also has moderate to severe
MR which can precipitate rapid heart failure as she has low EF as well. With the diuretic regimen she lost 12 pounds and now currently asymptomatic and off of oxygen. Repeat echocardiogram shows persistent low EF but now with mild MR and some
moderate to severe MR noted on Prior echocardiogram..
Increasing creatinine noted with diuresis. MIGUELINA inhibitors and Lasix was on hold for yesterday
Improving Cr today . Consider lower dose of diuretics - cards following
Farxiga on hold due to raising creatinine.
- continue DAPT
- cards following.
Raise in creatinine - Doubt SARAH, suspect sec to diuresis.Follow.Improved.
Lactic acidosis-suspect secondary to hypoxia. Resolved. Clinically no evidence of sepsis or obvious foci of infection.
DM II - on metformin at home
-Hold metformin 500
- low dose aspart sliding scale
COPD- h/o COPD and prior smoking. No clinical evidence of exacerbation. Currently not bronchospastic.
- prn nebs for now
DVT PPX w/ lovenox sq
Full code
Anticipated Discharge: Within 24 hours
Subjective/Interval History
-
Date of Service: March 25, 2024
Continued improvement with the breathing. Remains off of oxygen. No chest pain.
Objective Data
-
Labs:
Laboratory Results
03/25/24
05:45
Sodium 136
Potassium 4.1
Chloride 102
Carbon Dioxide 27
BUN 43 H
Creatinine 1.1 H
Glucose 133 H
Calcium 9.8
Vital Signs:
Vital Signs
Temp Pulse Resp BP Pulse Ox
98.1 F 59 15 106/58 93
03/25/24 07:14 03/25/24 08:00 03/25/24 08:00 03/25/24 08:00 03/25/24 09:24
I&O
03/24/24 03/25/24 03/26/24
06:59 06:59 06:59
Intake Total 480 / 480 520 / 520
Output Total 1250 / 1250 900 / 900
Balance -770 / -770 -380 / -380
Review of Systems
-
Constitutional: Denies Fever
Respiratory: Denies Cough
Abdomen/GI: Denies Abdominal Pain, Nausea or Vomiting
Neuro: Denies Dizzy
Physical Exam
-
General: No Apparent Distress
HEENT: Moist Mucous Membranes
Respiratory: Clear to Auscultation
Cardiac: Regular Rhythm and S1/S2
GI: Soft
Neuro: AO x 3
Psych: Calm; Negative Confused
Data Reviewed
-
Medical Tests (Nuc Med, Echo etc): Report Reviewed by me (ECHO)
Labs: Labs Reviewed by me
--- NOTE | 2024-03-25 09:34 | PTCARENOTE ---
VS captured for nightshift from [id number], cannot confirm accuracy.
--- NOTE | 2024-03-25 10:21 | W.PN.CD ---
Addendum entered and electronically signed by Lucian Zamarripa MD 03/25/24 10:58:
Patient seen and examined in collaboration with CT TECH; agree with below.
-Patient can be discharged to home on Bumex 2 mg PO daily.
-GDMT has been limited by renal dysfunction; would not resume Farxiga or valsartan at this time.
-Patient can follow-up with her primary Publishing Editor ([facility]) as an outpatient.
Original Note:
Today's Communication / Plan
-
Consider resuming oral diuretic
Impression / Plan
-
Indy Henderson is a 69-year-old female (known to Dr. Haley's, her primary accounts receivable collector), with HFrEF, CAD (PCI 10/2022), dyslipidemia, and type 2 diabetes mellitus who presented with acute on chronic heart failure presented with severe exacerbation.
Acute hypoxic respiratory failure - resolved
HFrEF/ICM (EF 35%), acute on chronic
-On furosemide to 80mg IV BID
-Trend daily weight, I/Os, and BMP with diuresis
-GDMT is limited by BP:
-MRA: Spironolactone stopped due to SARAH
-Beta luna: metoprolol succinate
-MIGUELINA/ARB: Valsartan - Holding with rising Cr
-SGLT2: Farxiga - Holding with rising Cr
-ICD: Implanted ([employer])
-HF education
Abnormal troponin, non-ischemic myocardial injury in the setting of acute HF
-Chest pain-free
-peaked at 0.499
CAD: s/p stenting 11/02/22
-Stable without chest pain
-Occluded non-dominant Lcx
-Occluded RCA: s/p SRAVANTHI to mid RCA and R AV groove
-Continue ASA/Plavix for one year with ASA indefinitely
Valvular HD: mild MR, and trace TR, improved, f/u with primary accounts receivable collector
Lipid management, reports statin intolerance, she is adamantly opposed to any further trial of statin, continue Zetia 10mg daily
PSVT & NSVT, continue Toprol XL
NIDDM, Hgba1c 8.7%
Prior tobacco abuse with COPD, continued cessation recommended
Physical Exam
Vital Signs/Labs
Vital Signs
Temp Pulse Resp BP Pulse Ox
98.1 F 59 15 106/58 93
03/25/24 07:14 03/25/24 08:00 03/25/24 08:00 03/25/24 08:00 03/25/24 09:24
03/24/24 03/25/24 03/26/24
06:59 06:59 06:59
Actual Weight 86.8 kg 85.6 kg
03/25/24 05:45
Magnesium 1.9 mg/dl (1.6-2.3) 03/22/24 06:32
03/22/24
01:25
Zze-L-Dvocgnezvhp Pept 2410
LAB Results
03/22/24 03/22/24
12:55 20:04
Troponin I 0.499 H* D 0.418 H*
Physical Exam
Constitutional: No acute distress and Comfortable
EENT: Anicteric and Moist mucous membranes
Cardiovascular: Rhythm & rate is regular, S1S2 is normal and Murmur/rub/gallop absent
Respiratory: Respiratory effort normal and Lungs clear to auscul.
GI: Soft, Distention absent, Flat, Non tender and Normal bowel sounds
Neuro/Psych: AO x 3
Other: Skin (warm and dry)
Data Reviewed
-
Date of Service: March 25, 2024
Echo: Report Reviewed by me
Labs: Labs Reviewed by me
Old Records: Reviewed
[2024-03-25 11:02] LABS: Hematocrit 36.4 % (37.0-47.0); Hemoglobin 12.2 g/dL (12.0-16.0); Mean Corp Hgb Conc. 33.5 g/dL (33.0-37.0); Mean Corpuscular Hgb 30.1 pg (27.0-31.0); Mean Corpuscular Volume 89.9 fL (81.0-99.0); Mean Platelet Volume 10.6 fL (7.4-10.4); Platelet Count 257 10^3/uL (130-400); Red Blood Cell Count 4.05 10^6/uL (4.20-5.40); Red Cell Dist. Width 14.6 % (11.5-14.5); White Blood Cell Count 6.7 10^3/uL (4.8-10.8)
[2024-03-25 11:52] LABS: Glucose - Point of Care 192 mg/dl (70-99)
[2024-03-25] MEDS: NOVOLOG FLEXPEN-LOW RESISTANCE 1 UNITS SC (13:38)
--- NOTE | 2024-03-25 14:44 | W.DS.TRANS ---
DC Summary - Computer Applications Developer
-
Discharge Instructions:
Sleep Apnea Risk Low
Discharge Diagnosis/Procedures Acute CHF with reduced EF
Diet 2 Gram Sodium,Diabetic, Carb Controlled
Activity As tolerated
Driving Restrictions As prior to admission
Bathing Restrictions None
Blood Work BMP in one week -arrange it through your PCP
Instructions: *PCP/Other Marketing Project Manager Heart Failure Instructions
Stand-Alone Forms:
Changes to Home Medications: Yes
Discharge Medications:
DC Medications w/original date entered in [facility]
metformin 500 mg tablet 500 mg PO BID@0800,1700 Diabetes 10/31/22
sitagliptin phosphate 100 mg tablet (Januvia) 100 mg PO DAILY Diabetes 10/31/22
clopidogrel 75 mg tablet 75 mg PO DAILY Blood clot prevention/tx #30 tabs 11/05/22
ezetimibe 10 mg tablet 10 mg PO DAILY High cholesterol #30 tabs 11/05/22
metoprolol succinate 25 mg tablet,extended release 24 hr 25 mg PO HS Heart Failure #30 tabs 11/05/22
aspirin 81 mg chewable tablet 81 mg PO QPM Blood clot prevention/tx 01/12/23
omeprazole 20 mg capsule,delayed release 20 mg PO QPM Gastrointestinal issue 01/12/23
bumetanide 2 mg tablet 2 mg PO DAILY Fluid Retention/Swelling 03/22/24
dapagliflozin propanediol 10 mg tablet (Farxiga) 10 mg PO DAILY heart failure/diabetes 03/22/24
valsartan 40 mg tablet 20 mg PO DAILY Blood Pressure 03/22/24
Home Medication Changes
Hold medication-Valsartan, Farxiga
Pending Results: No
--- NOTE | 2024-03-25 16:32 | W.DCSUMMARY ---
Discharge Summary
Discharge Data
Date of Admission: 03/22/24
Date of Discharge: 03/25/24
-
Pending Results: No
Hospital Course
Primary diagnosis:
Acute Hypoxic Respiratory failure
Acute on chronic CHF with reduced EF
Ischemic cardiomyopathy EF 35%
Moderate to severe mitral regurgitation
Secondary diagnosis:
Diabetes mellitus type 2
Chronic obstructive pulmonary disease
Hospital course:
Patient with a prior history of ischemic cardiomyopathy with EF of 35% with mild to moderate MR s/p ICD and pacemaker presented with acute onset of shortness of breath which started few hours prior to coming into the ER. She was hypoxic requiring
BiPAP. She was diagnosed of acute on chronic heart failure episode. She improved quickly with resolution of hypoxia with diuresis. Her troponin peaked up to 0.4. She had repeat echocardiogram which showed EF of 30 to 35%, inferior and anterior
septal hypokinesis, stage II diastolic dysfunction, dilated RV with normal function and mild MR. Compared to prior study from 12/2022 the MR is mild from moderate to severe and on [id number] comparison overall LV function will likely similar
however endocardial definition on today's study was limited.
Her weight came down from 201 pounds to 188 pounds. With diuresis her creatinine went up and peaking to 1.4. Farxiga was discontinued because of renal function changes. ARB was kept on hold as well. She had a diuretic holiday. Creatinine did
improve to 1.1 and then she was switched back to her home dose of Bumex 2 mg. She will follow-up with her primary dry chain puller and restart Farxiga and ARB.
She has a history of COPD with there was no evidence of exacerbation on this admission.
Consultants on board:
Cardiology-Khoa López
Discharge Plan
-
Patient Disposition: Home (Routine Discharge)
Discharge Diagnosis/Procedures: Acute CHF with reduced EF
Diet: 2 Gram Sodium and Diabetic, Carb Controlled
Activity: As tolerated
Driving Restrictions: As prior to admission
Bathing Restrictions: None
Blood Work: BMP in one week -arrange it through your PCP
Instructions: *PCP/Other Incendiaries Supervisor Heart Failure Instructions
Referrals:
Ulises Keith MD [Non-Admitting Privileges] - in one to two weeks
UNKNOWN - PT DOES,NOT KNOW [Family Provider] - in less than 1 week
Prescriptions:
Continued
metformin 500 mg tablet
500 mg PO BID@0800,1700
Januvia 100 mg tablet
100 mg PO DAILY
clopidogrel 75 mg Tablet
75 mg PO DAILY Qty: 30 0RF
metoprolol succinate 25 mg Tablet Extended Release 24 Hr
25 mg PO HS Qty: 30 0RF
ezetimibe 10 mg Tablet
10 mg PO DAILY Qty: 30 0RF
omeprazole 20 mg Capsule,Delayed Release(Dr/Ec)
20 mg PO QPM
aspirin 81 mg tablet,chewable
81 mg PO QPM
bumetanide 2 mg Tablet
2 mg PO DAILY
Held
valsartan 40 mg Tablet
20 mg PO DAILY
Hold Instructions: Resume on 04/01/24. Till reviewed by your PCP or dry chain puller
dapagliflozin propanediol [Farxiga] 10 mg Tablet
10 mg PO DAILY
Hold Instructions: Resume on 04/04/24. till seen by your dry chain puller
Discharge Orders:
Discharge Patient (As Directed); Ordered 03/25/24
Ordered By: Luca Ortiz
Discharge Date and Time
Print Language: GREENLANDIC
== END 2024-03-25 16:38 | disposition home or self-care (01) | DRG 291 ==
LOC: IMU 03:04
PROVIDERS: Nurse Practitioner Gerontology; ADMITTING PHYSICIAN Internal Medicine; ATTENDING PHYSICIAN Internal Medicine; CONSULT PHYSICIAN Internal Medicine Cardiovascular Disease; EMERGENCY PHYSICIAN Emergency Medicine
PROC: 5A09357 Assistance with Respiratory Ventilation, Less than 24 Consecutive Hours, Continuous Positive Airway Pressure (ICD-10-PCS; 2024-03-22)
DX: I11.0 Hypertensive heart disease with heart failure (principal); I50.23 Acute on chronic systolic (congestive) heart failure; J96.01 Acute respiratory failure with hypoxia; E87.20 Acidosis, unspecified; I47.10 Supraventricular tachycardia, unspecified; I25.10 Atherosclerotic heart disease of native coronary artery without angina pectoris; E11.9 Type 2 diabetes mellitus without complications; J44.9 Chronic obstructive pulmonary disease, unspecified; I5A Non-ischemic myocardial injury (non-traumatic); F17.200 Nicotine dependence, unspecified, uncomplicated; I25.5 Ischemic cardiomyopathy; E78.00 Pure hypercholesterolemia, unspecified; I34.0 Nonrheumatic mitral (valve) insufficiency; Z95.810 Presence of automatic (implantable) cardiac defibrillator; Z79.84 Long term (current) use of oral hypoglycemic drugs; Z79.02 Long term (current) use of antithrombotics/antiplatelets; Z79.82 Long term (current) use of aspirin; Z11.52 Encounter for screening for COVID-19; Z88.2 Allergy status to sulfonamides; Z88.6 Allergy status to analgesic agent; Z88.5 Allergy status to narcotic agent; Z91.013 Allergy to seafood
CPT/HCPCS: 71045; 80048; 80053; 82962; 83605; 83735; 83880; 84145; 84484; 85025; 85027; 87040; 87811; 93005; 93306; 94002; 94640; 96365; 96375; 97116; 97162; 97167; 97530; 99291

== ENCOUNTER → 2024-04-08 14:48 | Outpatient (REF) | payer OTHER, SELFPAY | LOC: WDC 14:48 | PROVIDERS: ATTENDING PHYSICIAN Family Medicine | DX: Z12.31 Encounter for screening mammogram for malignant neoplasm of breast (principal) | CPT/HCPCS: 77063; 77067 ==

== ENCOUNTER → 2025-05-20 14:33 | Outpatient (REF) | payer OTHER, SELFPAY | LOC: WDC 14:33 | PROVIDERS: ATTENDING PHYSICIAN Family Medicine | DX: Z12.31 Encounter for screening mammogram for malignant neoplasm of breast (principal) | CPT/HCPCS: 77063; 77067 ==